=== PATIENT | male | born 1990 | race Caucasian/White ===

== ENCOUNTER 2019-01-20 12:50 | Emergency (ER) | payer OTHER ==
--- NOTE | 2019-01-20 13:47 | EDM.PDOC ---
ED HPI GENERAL MEDICAL PROBLEM - General Chief Complaint: Allergic Reaction Stated Complaint: BEE STING LIPS SWOLLEN EAR STATIC Time Seen by Provider: 01/20/19 13:06 Source of Information: Reports: Patient, RN Notes Reviewed, Other (Friend) History Limitations: Reports: No Limitations - History of Present Illness INITIAL COMMENTS - FREE TEXT/NARRATIVE: The patient states that he was stung on his upper lip, just left of center, by a bee, while at work, around 11:40. He states that his upper lip swelled up immediately. He then took 4 tablets of Benadryl 25 mg, around noon, before coming to the ED. The patient states that his ears feel "fuzzy", but he denies having pruritus or a rash anywhere. The patient denies feeling any oral swelling (aside from his lip), including his tongue and uvula. He denies having dyspnea or wheezing. The patient states that he developed substantial swelling to his left hand and most of the way up his left forearm, after being stung on the dorsum of his left hand by a bee last year. He states that he treated it by "sticking an onion on it", and that it took about 2 weeks to resolve. He did not seek medical evaluation, and did not take any medications for that event. [facility] Lip Pain Score (Numeric/FACES): 4 - Related Data Allergies Allergy/AdvReac Type Severity Reaction Status Date / Time bee pollen Allergy Swelling Verified 01/20/19 13:02 Home Meds: Home Meds . [No Known Home Meds] 01/20/19 [History] Past Medical History - Past Surgical History HEENT Surgical History: Reports: Oral Surgery (wisdom teeth extraction) Social & Family History - Tobacco Use Smoking Status *Q: Current Every Day Smoker Years of Tobacco use: 10 Packs/Tins Daily: 0.5 Packs/Tins Daily Comment: Down from 1 ppd - Caffeine Use Caffeine Use: Reports: Coffee, Energy Drinks, Soda - Alcohol Use Alcohol Use History: Yes Alcohol Use Frequency: Socially (occasionally to excess) - Recreational Drug Use Recreational Drug Use: No - Living Situation & Occupation Living situation: Reports: Single, with Family Occupation: Employed ED ROS ALLERGIC REACTION - Review of Systems Review Of Systems: ROS reveals no pertinent complaints other than HPI. ED EXAM GENERAL NO PERIP PULSE - Physical Exam Exam: See Below Exam Limited By: No Limitations General Appearance: Alert, WD/WN, No Apparent Distress Eye Exam: Bilateral Eye: EOMI, Normal Inspection Ears: Normal External Exam, Normal Canal, Hearing Grossly Normal, Normal TMs Nose: Normal Inspection, Normal Mucosa, No Blood Throat/Mouth: Normal Inspection, Normal Teeth, Normal Gums, Normal Oropharynx, Normal Voice, No Airway Compromise, Other (Substantial swelling to the upper lip , just left of midline. It is not threatening airway obstruction.) Head: Atraumatic, Normocephalic Neck: Normal Inspection, Supple, Non-Tender, Full Range of Motion. No: Lymphadenopathy (L), Lymphadenopathy (R) Respiratory/Chest: No Respiratory Distress, Lungs Clear, Normal Breath Sounds, No Accessory Muscle Use. No: Decreased Breath Sounds, Crackles, Rhonchi, Wheezing, Prolonged Expiration Cardiovascular: Normal Peripheral Pulses, Regular Rate, Rhythm, No Edema, No Gallop, No JVD, No Murmur, No Rub GI/Abdominal: Normal Bowel Sounds, Soft, Non-Tender, No Organomegaly, No Distention, No Abnormal Bruit, No Mass (Male) Exam: Deferred Rectal (Males) Exam: Deferred Back Exam: Normal Inspection, Full Range of Motion, NT Extremities: Normal Inspection, Normal Range of Motion, No Pedal Edema, Normal Capillary Refill Neurological: Alert, Oriented, Normal Cognition, No Motor/Sensory Deficits Psychiatric: Normal Affect Skin Exam: Warm, Dry, Intact, Normal Color, No Rash Course - Vital Signs Last Recorded V/S: Last Vital Signs Temp 37.3 C 01/20/19 12:58 Pulse 66 01/20/19 14:08 Resp 16 01/20/19 14:08 BP 123/81 01/20/19 14:08 Pulse Ox 98 01/20/19 14:08 - Re-Assessments/Exams Free Text/Narrative Re-Assessment/Exam: 01/20/19 13:44 The patient appears to be suffering from a local inflammatory reaction to a bee sting. This is not an allergic reaction, as the patient is not demonstrating any systemic symptoms. Treatment for this condition includes an antihistamine and cold packs, with expected resolution in about 12 days. Departure - Departure Time of Disposition: 13:45 Disposition: Home, Self-Care 01 Condition: Good Clinical Impression: Local reaction to bee sting - Discharge Information *PRESCRIPTION DRUG MONITORING PROGRAM REVIEWED*: Not Applicable *COPY OF PRESCRIPTION DRUG MONITORING REPORT IN PATIENT [place]: Not Applicable Instructions: Bee, Wasp, or Hornet Sting, Adult Referrals: Arielle Mckenzie MD [Primary Care Provider] - Forms: ED Department Discharge Additional Instructions: You were seen in the emergency room after your upper lip became very swollen after being stung by a bee. A history and physical examination, you are suffering from a local laboratory reaction to a bee sting. We recommend that you take an antihistamine. Benadryl is fine, but might make you drowsy. You can take a nonsedating antihistamine instead, such as Taisha, Zyrtec, or Claritin. Apply an ice pack to your upper lip for at least 10-15 minutes, 5 times a day - more, if possible. You should expect resolution of your swollen lip within about 12 days. If any other problems, please do not hesitate to return to the ER.
== END 2019-01-20 14:08 | disposition home or self-care (01) ==
LOC: JD.ED 12:50
DX: T63.441A Toxic effect of venom of bees, accidental (unintentional), initial encounter (principal); F17.210 Nicotine dependence, cigarettes, uncomplicated; Z91.09 Other allergy status, other than to drugs and biological substances
CPT/HCPCS: 99282

== ENCOUNTER 2020-12-30 09:03 | Emergency (ER) | payer OTHER ==
[2020-12-30] MEDS ORDERED: Sodium Chloride 0.9% 10 ML Syringe FLUSH PRN (09:38)
[2020-12-30] MEDS ORDERED: Sodium Chloride 0.9% 1,000 ML IV STA (09:38)
--- NOTE | 2020-12-30 12:43 | EDM.PDOC ---
ED HPI GENERAL MEDICAL PROBLEM - General Chief Complaint: Abdominal Pain Stated Complaint: ABDOMINAL PAIN X 3 DAYS Time Seen by Provider: 12/30/20 09:30 Source of Information: Reports: Patient History Limitations: Reports: No Limitations - History of Present Illness INITIAL COMMENTS - FREE TEXT/NARRATIVE: The patient presents with left sided abdominal pain. This started 3 days ago. He has no nausea and vomiting. He has no dysuria. He went to [facility] and they gave him some magnesium citrate to have a bowel movement. He still has pain. He has no fever, chills, cough, congestion, runny nose, chest pain, shortness of breath, or diarrhea. He still has appendix and gallbladder. Onset: Gradual Duration: Day(s): (3) Location: Reports: Abdomen Quality: Reports: Sharp Severity: Moderate Improves with: Reports: None Worsens with: Reports: None Associated Symptoms: Reports: No Other Symptoms Left Lower Abdomen Pain Score (Numeric/FACES): 4 - Related Data Allergies Allergy/AdvReac Type Severity Reaction Status Date / Time bee pollen Allergy Swelling Verified 12/30/20 09:14 Home Meds: Home Meds Cholecalciferol (Vitamin D3) [Vitamin D] 5,000 unit PO DAILY 12/30/20 [History] Fexofenadine [Taisha] 30 mg PO DAILY 12/30/20 [History] Ibuprofen 800 mg PO Q6H PRN #30 tablet 12/30/20 [Rx] Past Medical History - Past Health History Medical/Surgical History: Denies Medical/Surgical History - Infectious Disease History Infectious Disease History: Reports: Chicken Pox - Past Surgical History HEENT Surgical History: Reports: Oral Surgery Social & Family History - Tobacco Use Tobacco Use Status *Q: Current Every Day Tobacco User Years of Tobacco use: 12 Packs/Tins Daily: 0.2 - Caffeine Use Caffeine Use: Reports: Coffee, Energy Drinks, Soda - Recreational Drug Use Recreational Drug Use: No - Living Situation & Occupation Living situation: Reports: Single, with Family Occupation: Employed ED ROS GENERAL - Review of Systems Review Of Systems: See Below Constitutional: Reports: No Symptoms HEENT: Reports: No Symptoms Respiratory: Reports: No Symptoms Cardiovascular: Reports: No Symptoms Endocrine: Reports: No Symptoms GI/Abdominal: Reports: Abdominal Pain. Denies: Diarrhea, Nausea, Vomiting : Reports: No Symptoms Musculoskeletal: Reports: No Symptoms ED EXAM, GI/ABD - Physical Exam Exam: See Below Exam Limited By: No Limitations General Appearance: Alert, No Apparent Distress Ears: Normal External Exam Nose: Normal Inspection Head: Atraumatic, Normocephalic Neck: Normal Inspection Respiratory/Chest: No Respiratory Distress, Lungs Clear, Normal Breath Sounds Cardiovascular: Regular Rate, Rhythm, No Edema, No Murmur GI/Abdominal Exam: Soft, No Organomegaly, No Mass, Tender (left sided abdominal pain) Back Exam: Normal Inspection Course - Vital Signs Last Recorded V/S: Last Vital Signs Temp 98.1 F 12/30/20 09:16 Pulse 80 12/30/20 09:16 Resp 13 12/30/20 09:16 BP 126/78 12/30/20 09:16 Pulse Ox 100 12/30/20 09:16 - Orders/Labs/Meds Orders: Active Orders 24 hr Category Date Time Status Peripheral IV Care [RC] . DIRECTED Care 12/30/20 09:39 Active Abdomen Pelvis w Cont [CT] Stat Exams 12/30/20 09:38 Taken Sodium Chloride 0.9% [Saline Flush] Med 12/30/20 09:38 Active 10 ml FLUSH ASDIRECTED PRN Peripheral IV Insertion Adult [OM.PC] Stat Oth 12/30/20 09:38 Ordered Medication Orders Sodium Chloride (Sodium Chloride 0.9% 10 Ml Syringe) 10 ml FLUSH ASDIRECTED PRN PRN Reason: Keep Vein Open Last Admin: 12/30/20 10:11 Dose: 10 ml Documented by: TAYLOR Labs: Laboratory Tests 12/30/20 12/30/20 12/30/20 Range/Units 10:05 10:05 10:05 WBC 6.12 (4.23-9.07) K/mm3 RBC 5.00 (4.63-6.08) M/mm3 Hgb 15.6 (13.7-17.5) gm/dl Hct 46.9 (40.1-51.0) % MCV 93.8 H (79.0-92.2) fl MCH 31.2 (25.7-32.2) pg MCHC 33.3 (32.2-35.5) g/dl RDW Std Deviation 43.4 (35.1-43.9) fL Plt Count 286 (163-337) K/mm3 MPV 10.1 (9.4-12.3) fl Neut % (Auto) 63.8 (34.0-67.9) % Lymph % (Auto) 24.7 (21.8-53.1) % [place] % (Auto) 7.4 (5.3-12.2) % Eos % (Auto) 3.1 (0.8-7.0) Baso % (Auto) 0.8 (0.1-1.2) % Neut # (Auto) 3.91 (1.78-5.38) K/mm3 Lymph # (Auto) 1.51 (1.32-3.57) K/mm3 [place] # (Auto) 0.45 (0.30-0.82) K/mm3 Eos # (Auto) 0.19 (0.04-0.54) K/mm3 Baso # (Auto) 0.05 (0.01-0.08) K/mm3 Sodium 145 (136-145) mEq/L Potassium 4.4 (3.5-5.1) mEq/L Chloride 106 (98-107) mEq/L Carbon Dioxide 32 (21-32) mEq/L Anion Gap 11.4 (5-15) BUN 11 (7-18) mg/dL Creatinine 1.1 (0.7-1.3) mg/dL Est Cr Clr Drug Dosing 116.24 mL/min Estimated GFR (MDRD) > 60 (>60) mL/min BUN/Creatinine Ratio 10.0 L (14-18) Glucose 89 (70-99) mg/dL Calcium 9.0 (8.5-10.1) mg/dL Total Bilirubin 0.5 (0.2-1.0) mg/dL AST 11 L (15-37) U/L ALT 20 (16-63) U/L Alkaline Phosphatase 84 (46-116) U/L Total Protein 7.4 (6.4-8.2) g/dl Albumin 4.0 (3.4-5.0) g/dl Globulin 3.4 gm/dL Albumin/Globulin Ratio 1.2 (1-2) Lipase 124 (73-393) U/L Urine Color Yellow (Yellow) Urine Appearance Clear (Clear) Urine pH 8.0 (5.0-8.0) Ur Specific [place] 1.025 (1.005-1.030) Urine Protein Negative (Negative) Urine Glucose (UA) Negative (Negative) Urine Ketones Negative (Negative) Urine Occult Blood Negative (Negative) Urine Nitrite Negative (Negative) Urine Bilirubin Negative (Negative) Urine Urobilinogen 0.2 (0.2-1.0) Ur Leukocyte Esterase Negative (Negative) Urine RBC Not seen (0-5) /hpf Urine WBC 0-5 (0-5) /hpf Ur Epithelial Cells 0-5 (0-5) /hpf Urine Bacteria Not seen (FEW) /hpf Urine Mucus Not seen (FEW) /hpf Meds: Medications Generic Name Dose Route Start Last Admin Trade Name Freq PRN Reason Stop Dose Admin Sodium Chloride 10 ml 12/30/20 09:38 12/30/20 10:11 Sodium Chloride 0.9% 10 Ml Syringe FLUSH 10 ml ASDIRECTED PRN Administration Keep Vein Open Discontinued Medications Generic Name Dose Route Start Last Admin Trade Name Freq PRN Reason Stop Dose Admin Sodium Chloride 1,000 mls @ 1,000 mls/hr 12/30/20 09:38 12/30/20 10:10 Normal Saline IV 12/30/20 10:37 1,000 mls/hr .BOLUS STA Administration - Re-Assessments/Exams Free Text/Narrative Re-Assessment/Exam: 12/30/20 12:41 I ordered an IV NS 1L bolus, labs, UA and a CT of his abdomen and pelvis with contrast. His CBC and CMP look good. His UA shows no UTI. His CT shows possible epiploic appendagitis involving the descending colon. No other etiology for left sided abdominal pain identified. He feels better. I will get him on some ibuprofen for a few days. Departure - Departure Time of Disposition: 12:45 Disposition: Home, Self-Care 01 Condition: Good Clinical Impression: Epiploic appendagitis - Discharge Information *PRESCRIPTION DRUG MONITORING PROGRAM REVIEWED*: Not Applicable *COPY OF PRESCRIPTION DRUG MONITORING REPORT IN PATIENT [place]: Not Applicable Prescriptions: Ibuprofen 800 mg PO Q6H PRN #30 tablet PRN Reason: Pain Referrals: Nhung Joy [facility] [Primary Care Provider] - 1 Week Additional Instructions: Drink plenty of fluids. Take the ibuprofen every 6 hours as needed for pain. Follow up with your provider within a week. Please return if you are worse. Sepsis Event Note (ED) - Evaluation Sepsis Screening Result: No Definite Risk - Focused Exam Vital Signs: Vital Signs Temp Pulse Resp BP Pulse Ox 12/30/20 09:16 98.1 F 80 13 126/78 100 - My Orders Last 24 Hours: My Active Orders 12/30/20 09:38 Abdomen Pelvis w Cont [CT] Stat Sodium Chloride 0.9% [Saline Flush] 10 ml FLUSH ASDIRECTED PRN Peripheral IV Insertion Adult [OM.PC] Stat 12/30/20 09:39 Peripheral IV Care [RC] . DIRECTED - Assessment/Plan Last 24 Hours: My Active Orders 12/30/20 09:38 Abdomen Pelvis w Cont [CT] Stat Sodium Chloride 0.9% [Saline Flush] 10 ml FLUSH ASDIRECTED PRN Peripheral IV Insertion Adult [OM.PC] Stat 12/30/20 09:39 Peripheral IV Care [RC] . DIRECTED
--- NOTE | 2021-01-01 07:55 | CT ---
CT abdomen and pelvis Technique: Multiple axial sections were obtained from above the dome of the diaphragm inferiorly through the pubic symphysis. Intravenous contrast and oral contrast was utilized. Delayed images were also obtained through the abdomen and pelvis. Comparison: No previous study. Findings: Visualized lung bases show nothing acute. Liver shows no focal parenchymal abnormality. Spleen size is normal. Adrenal glands show no nodule. No abnormality is seen within the spleen. Gallbladder contains no calcified gallstones. Kidneys show symmetric contrast enhancement without hydronephrosis or mass. Delayed images show contrast within both proximal nondilated ureters. Bladder shows contrast on the delayed images. Abdominal aorta shows no aneurysm. No retroperitoneal adenopathy or mesenteric abnormalities are seen. Appendix is seen which is normal. No pelvic mass or adenopathy is identified. There is very minimal inflammatory change seen off the descending colon near the sigmoid junction suspicious for possible mild epiploic appendagitis. Bone window settings were reviewed which show no acute osseous abnormality. Impression: 1. Findings suspicious for mild epiploic appendagitis within the descending colon near the sigmoid junction. 2. No additional abnormality is appreciated on CT study of the abdomen and pelvis. Diagnostic code #3 I agree with preliminary report from [facility], finalized on 12/30/20, 1:10 PM CDT, code 1
== END 2020-12-30 13:00 | disposition home or self-care (01) ==
LOC: JD.ED 09:03
DX: K63.89 Other specified diseases of intestine (principal); Z91.030 Bee allergy status; Z72.0 Tobacco use
CPT/HCPCS: 36415; 74177; 80053; 81001; 83690; 85025; 99284; J7030

== ENCOUNTER 2024-03-02 21:04 | Emergency (ER) | payer BC, OTHER | END 2024-03-02 22:42 | disposition home or self-care (01) | LOC: JD.ED 21:04 | DX: S92.255A Nondisplaced fracture of navicular [scaphoid] of left foot, initial encounter for closed fracture (principal); F17.210 Nicotine dependence, cigarettes, uncomplicated; Z91.030 Bee allergy status; W17.2XXA Fall into hole, initial encounter | CPT/HCPCS: 73590-26-LT; 73590-LT; 73610-26-LT; 73610-LT; 73630-26-LT; 73630-LT; 99283 ==